=== PATIENT | male | born 1960 | race Caucasian/White ===

== ENCOUNTER 2018-03-23 14:23 | Inpatient (IN) | payer BC ==
[~2018-03-23] VITALS: Ht 170.2 cm; Wt 67.4 kg
[2018-03-23] MEDS ORDERED: PROCHLORPERAZINE 10MG/2ML VIAL IV PRN (15:00)
[2018-03-23 15:49] LABS: BASOPHILS % 0.4 % (0.0-2.0); EOSINOPHILS % 1.8 % (0.0-5.0); HEMATOCRIT. 45.2 % (42.0-52.0); HEMOGLOBIN. 15.4 g/dL (14.0-18.0); LYMPHOCYTES % 17.5 % (20.0-50.0); MEAN CORPUSCULAR HEMOGLOBIN 31.6 pg (28.0-32.0); MEAN CORPUSCULAR VOLUME 92.7 fL (80.0-94.0); MEAN PLATELET VOLUME 8.7 fl (7.4-10.4); MONOCYTES % 6.5 % (2.0-8.0); NEUTROPHILS % 73.8 % (40.0-76.0); PLATELET 257 x1000/uL (130-400); RED BLOOD CELL COUNT 4.88 mill/uL (4.7-6.1); RED CELL DISTRIBUTION WIDTH 13.1 % (11.6-14.6)
[2018-03-23 15:59] LABS: CHLORIDE 107 mEq/L (98-107)
[2018-03-23] MEDS ORDERED: IPRATROPIUM/ALBUTEROL 0.5-3(2.5)MG/3ML NEB INH PRN (19:30)
[2018-03-23] MEDS ORDERED: NA PHOS,M-B/NA PHOS,DI-BA ENEMA 118ML PR PRN (19:30)
[2018-03-23] MEDS ORDERED: CLONIDINE 0.1MG TABLET PO PRN (19:30)
[2018-03-23] MEDS ORDERED: DOCUSATE SODIUM 100MG CAPSULE PO PRN (19:30)
[2018-03-23] MEDS ORDERED: DIPHENHYDRAMINE 50MG/ML VIAL IV PRN (19:30)
[2018-03-23] MEDS ORDERED: GUAIFENESIN 200MG/10ML SUGAR FREE UDC PO PRN (19:30)
[2018-03-23] MEDS ORDERED: ACETAMINOPHEN 325MG TABLET PO PRN (19:30)
[2018-03-23] MEDS ORDERED: HYDROMORPHONE HCL/PF 2MG/ML CPJ IV PRN (19:30)
[2018-03-23] MEDS ORDERED: ONDANSETRON HCL 4MG/2ML INJ IV PRN (19:30)
[2018-03-23] MEDS ORDERED: HYDROCODONE/ACETAMINOPHEN 5/325MG TABLET PO PRN (19:30)
[2018-03-23] MEDS ORDERED: MAGNESIUM/ALUMINUM HYDROXIDE/SIMETHICONE 30ML UDC PO PRN (19:30)
[2018-03-23] MEDS ORDERED: LORAZEPAM 2MG/ML CPJ IV PRN (19:30)
[2018-03-23 21:00] VITALS: BP 104/70
[2018-03-23 22:00] VITALS: BP 104/70
[2018-03-23 22:22] LABS: CHLORIDE 105 mEq/L (98-107)
[2018-03-23] MEDS ORDERED: ENOXAPARIN 40MG/0.4ML SYR SUBCUT SCH (22:30)
[2018-03-24] VITALS: BP 105/69
[2018-03-24 04:00] VITALS: BP 95/59
[2018-03-24 07:40] LABS: BASOPHILS % 0.3 % (0.0-2.0); HEMATOCRIT. 41.7 % (42.0-52.0); HEMOGLOBIN. 14.4 g/dL (14.0-18.0); LYMPHOCYTES % 19.9 % (20.0-50.0); MEAN CORPUSCULAR HEMOGLOBIN 31.6 pg (28.0-32.0); MEAN CORPUSCULAR VOLUME 91.4 fL (80.0-94.0); MEAN PLATELET VOLUME 8.9 fl (7.4-10.4); MONOCYTES % 8.5 % (2.0-8.0); NEUTROPHILS % 69.3 % (40.0-76.0); PLATELET 235 x1000/uL (130-400); RED BLOOD CELL COUNT 4.57 mill/uL (4.7-6.1); RED CELL DISTRIBUTION WIDTH 13.1 % (11.6-14.6)
[2018-03-24 08:25] LABS: CHLORIDE 106 mEq/L (98-107)
[2018-03-24 08:32] LABS: LDL CHOLESTEROL 81 mg/dL (5-100)
[2018-03-24 08:38] LABS: HDL CHOLESTEROL 43 mg/dL (40-59); T4 FREE 0.85 ng/dL (0.76-1.46)
[2018-03-24] MEDS ORDERED: ASPIRIN 81MG EC TABLET PO SCH (09:00)
[2018-03-24 11:05] VITALS: BP 91/64
== END 2018-03-24 12:00 | disposition home or self-care (01) | DRG 149 ==
LOC: ER 14:23 → EDBEDREQTM 17:25 → EDBEDREQ 17:25 → 7WST 17:25 → ENRESERV 19:37
PROVIDERS: ADMIT Internal Medicine; ATTEND Internal Medicine
DX: R42 Dizziness and giddiness (principal); I10 Essential (primary) hypertension; E78.00 Pure hypercholesterolemia, unspecified
CPT/HCPCS: 36415; 71045; 80048; 80061; 84439; 84443; 84484; 93005; 99285; J1650